=== PATIENT | female | born 1995 | race Caucasian/White ===

== ENCOUNTER 2017-05-17 12:30 | Emergency (ER) | payer OTHER ==
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
[2017-05-17] MEDS ORDERED: ONDANSETRON 4 MG/2 ML VIAL ONE ×2 (13:43→17:55)
[2017-05-17] MEDS ORDERED: IOPAMIDOL (ISOVUE-300) 100 ML BTL ONE (13:45)
[2017-05-17] MEDS ORDERED: HYDROmorphONE/DILAUDID 1 MG/ML INJ IVP ONE ×2 (13:56→14:23)
[2017-05-17] MEDS ORDERED: ONDANSETRON 4 MG/2 ML VIAL IVP ONE (13:57)
[2017-05-17 14:20] LABS: PLATELET COUNT 260 10^3/uL (150-400)
[2017-05-17] MEDS ORDERED: HYDROmorphONE/DILAUDID 1 MG/ML INJ ONE (17:55)
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
[2017-05-17 20:00] VITALS: BP 121/75; PULSE 95; RESP 16; TEMP 97.9; O2SAT 93
== END 2017-05-17 20:00 | disposition home or self-care (01) ==
DX: S52.552A Other extraarticular fracture of lower end of left radius, initial encounter for closed fracture (principal); S06.0X1A Concussion with loss of consciousness of 30 minutes or less, initial encounter; S01.81XA Laceration without foreign body of other part of head, initial encounter; S37.012A Minor contusion of left kidney, initial encounter; S20.212A Contusion of left front wall of thorax, initial encounter; S70.02XA Contusion of left hip, initial encounter; V00.328A Other snow-ski accident, initial encounter
CPT/HCPCS: 82947-QW; 96374; A4565; J1170; J2405; Q9967